=== PATIENT | female | born 1975 ===

== ENCOUNTER 2016-08-15 13:36 | Emergency (ER) | payer MEDICAID ==
[2016-08-15 13:37] VITALS: BMI 26.2
[2016-08-15 13:58] VITALS: RESP 16
--- NOTE | 2016-08-15 14:43 | C.PDOC ---
History Of Present Illness 41 year old female presents to the ER with complaint of lower back pain radiating to both legs x several days. Patient has a Hx of sciatica for which she takes gabapentin. She states she is supposed to take it 3 times daily, but has only been taking it once at night because it makes her drowsy. Patient denies fever, abdominal pain, sensory changes of the legs, weakness of the legs , urinary retention, bowel/bladder incontinence. Time Seen by Provider: 08/15/16 13:44 Chief Complaint (Nursing): Back Pain History Per: Patient History/Exam Limitations: no limitations Onset/Duration Of Symptoms: Days Current Symptoms Are (Timing): Still Present Quality Of Discomfort: "Pain" Severity: Mild Previous Symptoms: Back Pain (Lower) Associated Symptoms: denies: Incontinence, New Weakness, New Numbness Exacerbating Factor(s): Nothing Past Medical History Reviewed: Historical Data, Nursing Documentation, Vital Signs Vital Signs: Last Vital Signs Temp 98.4 F 08/15/16 14:51 Pulse 74 08/15/16 14:51 Resp 16 08/15/16 14:51 BP 107/72 08/15/16 14:51 Pulse Ox 97 08/15/16 15:10 - Medical History PMH: Back Problems Surgical History: - [facility] Procedures INJECT/INFUSE NEC (09/05/12) Family History: States: No Known Family Hx - Social History Hx Tobacco Use: No Hx Alcohol Use: No Hx Substance Use: No - Immunization History Hx Tetanus Toxoid Vaccination: No Hx Influenza Vaccination: No Hx Pneumococcal Vaccination: No Review Of Systems Except As Marked, All Systems Reviewed And Found Negative. Constitutional: Negative for: Fever, Chills Cardiovascular: Negative for: Chest Pain, Palpitations Respiratory: Negative for: Cough, Shortness of Breath Gastrointestinal: Negative for: Nausea, Vomiting, Abdominal Pain, Diarrhea Musculoskeletal: Positive for: Back Pain (Lower), Leg Pain (Bilaterally, radiating from lower back.) Skin: Negative for: Rash Neurological: Negative for: Weakness, Numbness Physical Exam - Physical Exam Appears: Well, Non-toxic Skin: Normal Color, Warm, Dry, No Rash Head: Normacephalic Oral Mucosa: Moist Cardiovascular: Rhythm Regular Respiratory: Normal Breath Sounds, No Rales, No Rhonchi, No Wheezing Gastrointestinal/Abdominal: Normal Exam, Bowel Sounds, Soft, No Tenderness Back: No CVA Tenderness, No Vertebral Tenderness, Paraspinal Tenderness (Lumbar TTP bilaterally) Extremity: Normal ROM, No Pedal Edema, No Calf Tenderness, No Deformity Neurological/Psych: Oriented x3, Normal Speech, Normal Cognition, Normal Cranial Nerves, No Cerebellar Signs, Normal Motor, Normal Sensation Gait: Steady ED Course And Treatment O2 Sat by Pulse Oximetry: 97 (Room air) Pulse Ox Interpretation: Normal Progress Note: Patient given IM toradol and PO Flexeril in ED. Reevaluation Time: 14:45 Reassessment Condition: Improved (Patient reassessed, is resting comfortably and states her pain has improved. She is ambulating normally in the ED. Patient given Rxs for Naprosyn and Flexeril, and she was instructed to follow up with PMD in 1-2 days. She understands she should return to ED if her symptoms worsen.) Disposition Counseled Patient/Family Regarding: Diagnosis, Need For Followup, Rx Given - Disposition Referrals: Monse Mcdonough MD [Medical Doctor] - Disposition: HOME/ ROUTINE Disposition Time: 14:45 Condition: STABLE Additional Instructions: FOLLOW UP WITH YOUR DOCTOR/CLINIC IN 1-2 DAYS USE MEDICATIONS NEEDED FOR PAIN RETURN TO ER IF SYMPTOMS WORSEN Prescriptions: Cyclobenzaprine [Cyclobenzaprine HCl] 10 mg PO BID PRN #15 tab PRN Reason: Muscle Spasm Naproxen [Naprosyn] 1 tab PO BID PRN #25 tab PRN Reason: Pain Instructions: Sciatica (ED), Lumbar Radiculopathy (ED) Print Language: SURINAMESE - POA Present On Arrival: None - Clinical Impression Clinical Impression: Low back pain, Sciatica - Scribe Statement The provider has reviewed the documentation as recorded by the Dayana Colin All medical record entries made by the Kipibmanda were at my direction and personally dictated by me. I have reviewed the chart and agree that the record accurately reflects my personal performance of the history, physical exam, medical decision making, and the department course for this patient. I have also personally directed, reviewed, and agree with the discharge instructions and disposition.
[2016-08-15 14:52] VITALS: BP 107/72; PULSE 74; TEMP 98.4
[2016-08-15 15:06] VITALS: O2SAT 97
== END 2016-08-15 14:52 | disposition home or self-care (01) ==
LOC: C.ER 13:36
DX: M54.42 Lumbago with sciatica, left side (principal); M54.41 Lumbago with sciatica, right side
CPT/HCPCS: 96372; 99284; J1885

== ENCOUNTER 2016-10-28 15:36 | Emergency (ER) | payer BC, MEDICAID ==
[2016-10-28 15:51] VITALS: BMI 26.4
[2016-10-28 15:55] VITALS: BP 125/86; PULSE 81; RESP 18; TEMP 98; O2SAT 100
--- NOTE | 2016-10-28 16:19 | C.PDOC ---
History Of Present Illness 41 y/o female presents to ED with c/o sore throat and hoarse voice for 4 days. Patient also reports some barking cough. 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 Denies fever, chills, headache, nausea, vomiting. Time Seen by Provider: 10/28/16 15:56 Chief Complaint (Nursing): ENT Problem History Per: Patient History/Exam Limitations: None Onset/Duration Of Symptoms: Days Current Symptoms Are (Timing): Still Present Anticoagulant/Antiplatlet Use?: No Past Medical History Reviewed: Historical Data, Nursing Documentation, Vital Signs Vital Signs: Last Vital Signs Temp 98 F 10/28/16 15:51 Pulse 81 10/28/16 15:51 Resp 18 10/28/16 15:51 BP 125/86 10/28/16 15:51 Pulse Ox 100 10/28/16 19:45 - Medical History PMH: Back Problems Surgical History: - [facility] Procedures INJECT/INFUSE NEC (09/05/12) Family History: States: Unknown Family Hx - Social History Hx Tobacco Use: No Hx Alcohol Use: No Hx Substance Use: No - Immunization History Hx Tetanus Toxoid Vaccination: No Hx Influenza Vaccination: No Hx Pneumococcal Vaccination: No Review Of Systems Except As Marked, All Systems Reviewed And Found Negative. Constitutional: Negative for: Fever, Chills ENT: Positive for: Throat Pain. Negative for: Ear Pain, Nose Discharge, Nose Congestion, Throat Swelling Respiratory: Negative for: Shortness of Breath, Wheezing Gastrointestinal: Negative for: Nausea, Vomiting Physical Exam - Physical Exam Appears: Non-toxic, No Acute Distress, Other (hoarse voice noted) Skin: Normal Color, Warm, Dry Head: Atraumatic, Normacephalic Eye(s): bilateral: Normal Inspection, PERRL, EOMI Ear(s): Bilateral: Normal Nose: Normal Oral Mucosa: Moist Throat: Normal, No Erythema, No Exudate, No Drooling, Other (uvula midline) Neck: Normal ROM, Supple Chest: Symmetrical Cardiovascular: Rhythm Regular Respiratory: Normal Breath Sounds, No Rales, No Rhonchi, No Stridor, No Wheezing Gastrointestinal/Abdominal: Soft, No Tenderness Back: Normal Inspection Extremity: Normal ROM Neurological/Psych: Oriented x3, Normal Speech, Normal Cognition ED Course And Treatment O2 Sat by Pulse Oximetry: 100 (RA) Pulse Ox Interpretation: Normal Progress Note: Treated with Zithromax. On reassessment, patient is resting comfortably, and is in no acute distress. Patient instructed to take medications as directed and to follow up with clinic/PMD within 1-2 days. Disposition - Disposition Disposition: HOME/ ROUTINE Disposition Time: 16:16 Condition: STABLE Additional Instructions: Follow up with PMD within 1-2 days. Return to ED if feel worse. 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 - Scribe Statement The provider has reviewed the documentation as recorded by the Scribe [facility] [place] medical record entries made by the Scribe were at my direction and personally dictated by me. I have reviewed the chart and agree that the record accurately reflects my personal performance of the history, physical exam, medical decision making, and the department course for this patient. I have also personally directed, reviewed, and agree with the discharge instructions and disposition.
== END 2016-10-28 16:20 | disposition home or self-care (01) ==
LOC: C.ER 15:36
DX: J04.0 Acute laryngitis (principal)

== ENCOUNTER 2017-06-17 20:24 | Emergency (ER) | payer MEDICAID ==
[2017-06-17 20:24] VITALS: BMI 26.4
[2017-06-17 21:34] VITALS: BP 117/80; PULSE 65; RESP 14; TEMP 98; O2SAT 99
--- NOTE | 2017-06-17 21:53 | C.PDOC ---
History Of Present Illness 41 year old female presents to the ER with a complaint of pain to the left neck , upper back area that radiates to the left shoulder and mid arm intermittently since yesterday. Patient states the pain started while she was at work. Patient did not take anything at home for her symptoms. Denies headache, dizziness, injury, weakness, numbness, or Hx of arthritis. Time Seen by Provider: 06/17/17 21:38 Chief Complaint (Nursing): Upper Extremity Problem/Injury History Per: Patient History/Exam Limitations: no limitations Onset/Duration Of Symptoms: Days, Intermittent Episodes Current Symptoms Are (Timing): Still Present Recent travel outside of the [place]: No Past Medical History Reviewed: Historical Data, Nursing Documentation, Vital Signs Vital Signs: Last Vital Signs Temp 98 F 06/17/17 21:29 Pulse 65 06/17/17 21:29 Resp 14 06/17/17 21:29 BP 117/80 06/17/17 21:29 Pulse Ox 99 06/17/17 23:31 - Medical History PMH: Back Problems Surgical History: - [facility] Procedures INJECT/INFUSE NEC (09/05/12) Family History: States: Unknown Family Hx - Social History Hx Tobacco Use: No Hx Alcohol Use: No Hx Substance Use: No - Immunization History Hx Tetanus Toxoid Vaccination: No Hx Influenza Vaccination: No Hx Pneumococcal Vaccination: No Review Of Systems Musculoskeletal: Positive for: Neck Pain (Left), Arm Pain (Left radiating from neck), Back Pain (Upper left) Neurological: Negative for: Weakness, Numbness Physical Exam - Physical Exam Appears: Non-toxic, No Acute Distress Skin: Normal Color, Warm, Dry Head: Atraumatic, Normacephalic Eye(s): bilateral: Normal Inspection Neck: Normal, No Midline Cervical Tenderness, No Paracervical Tenderness, Supple Chest: Symmetrical Cardiovascular: Rhythm Regular Respiratory: Normal Breath Sounds, No Wheezing Back: Normal Inspection, No Vertebral Tenderness, No Paraspinal Tenderness Extremity: Normal ROM (x4), No Tenderness, No Deformity, No Swelling Pulses: Left Radial: Normal Neurological/Psych: Oriented x3, Normal Speech, Normal Motor, Normal Sensation ED Course And Treatment O2 Sat by Pulse Oximetry: 99 Medical Decision Making Medical Decision Making: impression: neck, back and shoulder pain Plan: * Toradol * Left shoulder x-ray Progress: Xray shows no abnormality. On re-eval patient reports feeling better and has no pain. She is moving neck and arm well with good ROM. Pain likely musculoskeletal. Recommend NSAIDs for few days and if pain persists can follow up with DR Garvin Disposition Counseled Patient/Family Regarding: Diagnosis, Need For Followup, Rx Given - Disposition Referrals: Alberto Dalton III, MD [Staff Provider] - Disposition: HOME/ ROUTINE Disposition Time: 22:39 Condition: STABLE Additional Instructions: Your xray was normal. Please apply ice to area 15 minutes three times a day. Take Motrin as needed for pain every 6 hours, with food to not upset stomach. Follow up with orthopedic if pain persists over one week. 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 - Scribe Statement The provider has reviewed the documentation as recorded by the Scribmanda Colin All medical record entries made by the Kipibmanda were at my direction and personally dictated by me. I have reviewed the chart and agree that the record accurately reflects my personal performance of the history, physical exam, medical decision making, and the department course for this patient. I have also personally directed, reviewed, and agree with the discharge instructions and disposition.
--- NOTE | 2017-06-18 09:24 | RAD ---
PROCEDURE: Radiographs of the Left Shoulder HISTORY: Shoulder pain COMPARISON: No prior. FINDINGS: BONES: Bone alignment and mineralization are normal. There is no acute displaced fracture or bone destruction. JOINTS: Normal. Glenohumeral and acromioclavicular joints preserved. No significant osteoarthritis. SOFT TISSUES: Normal. OTHER FINDINGS: None. IMPRESSION: No acute fracture or dislocation.
== END 2017-06-17 22:48 | disposition home or self-care (01) ==
LOC: C.ER 20:24
DX: M75.92 Shoulder lesion, unspecified, left shoulder (principal)
CPT/HCPCS: 73030; 96372; 99283; J1885